=== PATIENT | female | born 1955 | race Caucasian/White ===

== ENCOUNTER 2016-08-16 06:02 | Day surgery (SDC) | payer BC ==
--- NOTE | ~2016-08-16 | OP ---
Record Of Operation [facility] [address] [place]. [address] NAME: KATIE GARCIA : 59 STATUS : REG [facility]#: [id number] AGE: 61 ADM/REG DATE : 08/16/16 MR#: [id number] REPORT SERV DATE: 08/16/16 DICTATED BY: LITTLE SHELDON DATE: 08/16/16 REPORT STATUS : Draft TRANSCRIBED BY: MODL DATE: 08/16/16 DATE OF PROCEDURE: 08/16/2016 PREPROCEDURE DIAGNOSIS: A 6 mm right renal pelvic calculus. POSTPROCEDURE DIAGNOSIS: A 6 mm right renal pelvic calculus. PROCEDURE: Right ESWL. SURGEON: Little Sheldon M.D. SHIPBOARD INTELLIGENCE ANALYST: Janet Chacon. ANESTHESIA: MAC. HISTORY: Ms Garcia is a 61-year-old white female with a right renal calculus, I previously brought her to the operating room earlier this week to manipulate the stone back into her kidney from her proximal ureter and placed a right ureteral stent when she was having intractable right flank pain. She is feeling much better and is now ready for right ESWL. Risks specific to this procedure include, but not limited to bleeding, infection, incomplete stone fragmentation, Steinstrasse, hematoma, injury to neighboring organs, need for further urologic procedures, anesthesia complications, and so forth. I answered all of her questions I believe to her satisfaction. Subsequently, she requested the procedure and provided informed written consent. PROCEDURE IN DETAIL: On 08/16/2016, the patient was brought to the lithotripsy suite. She was placed supine on the Dornier Compact Delta II lithotripter. Biplanar fluoroscopy was used to localize the right renal calculus. A time-out was called. The proper patient and procedure were confirmed. Levaquin was administered as a perioperative antibiotic. At this time, the Anesthesia team established monitored anesthesia care. Subsequently, we delivered a total of 2500 shocks at a maximum power of 4 kilovolts and rate of 90 shocks per minute. Fluoroscopy time was 1 minute 38 seconds. The patient tolerated the procedure well, and tolerated the procedure without immediate complications, and transferred to the recovery area in stable condition. RAC/MODL Little Sheldon M.D. / [id number] CC: Record Of Operation [facility] [address] [place]. [address] NAME: KATIE GARCIA : 59 STATUS : REG [facility] PAT#: [id number] AGE: 61 ADM/REG DATE : 08/16/16 MR#: [id number] REPORT SERV DATE: 08/16/16 DICTATED BY: LITTLE SHELDON DATE: 08/16/16 REPORT STATUS : Draft TRANSCRIBED BY: MODL DATE: 08/16/16 Jodie Eagle M.D.
[~2016-08-16 06:02] MED LIST: ACET500CAP PO; ALLEGRA180 PO; CLARIT10 PO; ENDOCET1 TA1 PO; FLONASE NAS; MULTIVIT/MIN PO; OTC ALLERGY EYE DROP OPH; PR12.5 PO; PREV15 PO; SUCR PO
== END 2016-08-16 13:31 | disposition home or self-care (01) ==
LOC: SDC 06:02
PROVIDERS: Urology
PROC: 0TF3XZZ Fragmentation in Right Kidney Pelvis, External Approach (ICD-10-PCS; principal; 2016-08-16 08:00)
DX: N20.0 Calculus of kidney (principal); D64.9 Anemia, unspecified; K21.9 Gastro-esophageal reflux disease without esophagitis; K44.9 Diaphragmatic hernia without obstruction or gangrene; Z90.89 Acquired absence of other organs; J30.2 Other seasonal allergic rhinitis; R55 Syncope and collapse; Z79.899 Other long term (current) drug therapy; Z79.891 Long term (current) use of opiate analgesic
CPT/HCPCS: 50590; 74000; 93005; J3010